=== PATIENT | male | born 1995 | race Caucasian/White ===

== ENCOUNTER 2025-05-28 00:57 | Emergency (ER) | payer MEDICAID ==
[~2025-05-28] VITALS: Ht 182.9 cm; Wt 80.0 kg
[2025-05-28 00:59] VITALS: RESP 18
--- NOTE | 2025-05-28 01:16 | ELECTROCARDIOGRAPH REPORT ---
[facility] Test Date: 2025-05-28 Test Time: 01:12:47 Pat Name: PALAK BENITEZ Department: EMERGENCY ROOM [id number] Room: Gender: M [employer]: : 1995 Requested By: TANNER LEÓN Order Number: [id number] Reading MD: Measurements Intervals [place] Rate: 58 P: 150 CO: 195 QRS: 196 QRSD: 106 T: 153 QT: 389 QTc: 383 Interpretive Statements Age not entered, assumed to be 48 years old for purpose of ECG interpretation Right and left arm electrode reversal, interpretation assumes no reversal Sinus or ectopic atrial bradycardia Right axis deviation Abnormal T, consider ischemia, lateral leads ST elev, probable normal early repol pattern Please click the below link to view image of tracing.
[2025-05-28 01:45] LABS: MEAN PLATELET VOLUME 8.0 FL (7.4-10.4); RED CELL DISTRIBUTION WIDTH 13.4 % (11.5-14.5)
[2025-05-28 02:00] VITALS: BP 112/70; PULSE 63
[2025-05-28 02:00] LABS: CREATININE 0.84 MG/DL (0.60-1.10); TOTAL CARBON DIOXIDE 32.3 MMOL/L (24-32); eCRCL 140 ML/MIN; eGFR > 90 ML/MIN
--- NOTE | 2025-05-28 02:13 | Physician Documentation ---
History of Present Illness Chief Complaint: Syncope Stated Complaint: FAINTING Time Seen by MD: 01:09 Mode of Arrival: EMS HPI Reports abdominal pain and vomiting after eating hot sauce. Denies fevers, diarrhea, urinary symptoms. Also reports possible loss of consciousness. Difficult historian. Medication Reconciliation Allergies: Coded Allergies: No Known Allergies (Unverified , 05/28/25) Review of Systems All Other Systems at this time: Reviewed and Negative Physical Exam Vital Signs: RN Vital Signs have been reviewed: Yes, Temperature: 98.1, Heart Rate: 63, Respiratory Rate: 18, BP: 112/70, Pulse Oximetry: 98, Weight: 80.000 Physical Exam HEENT: PERRL, moist oral mucosa, EOMI Pulmonary: No respiratory distress Cardiac: RRR, no murmur, rub or gallop GI: nondistended, soft, nontender, no guarding, no rebound MSK: no deformity Skin: w/d/i, no rash Neuro: alert, nonfocal Psych: normal affect Progress Results/Orders Results/Orders Orders - TANNER LEÓN MD Stat Ekg (05/28/25 01:09) Completed Orders - TANNER LEÓN MD Electrocardiogram (05/28/25 01:09) Cbc/Diff (05/28/25 01:15) CMP (05/28/25 01:15) Lipase (05/28/25 01:15) Vital Signs 05/28/25 05/28/25 05/28/25 05/28/25 00:59 01:15 01:30 01:45 Temp 98.1 Pulse 56 62 60 62 Resp 18 B/P (MAP) 120/93 117/83 (94) 113/74 (87) 110/75 (87) Pulse Ox 99 99 98 98 05/28/25 02:00 Pulse 63 B/P (MAP) 112/70 (84) Pulse Ox 98 Laboratory Tests Test 05/28/25 01:34 White Blood Count 8.0 Red Blood Count 4.84 Hemoglobin 14.1 Hematocrit 41.1 L Mean Corpuscular Volume 85.0 Mean Corpuscular Hemoglobin 29.3 Mean Corpuscular Hemoglobin Concent 34.4 Red Cell Distribution Width 13.4 Platelet Count 213 Mean Platelet Volume 8.0 Neutrophils (%) (Auto) 53.3 Lymphocytes (%) (Auto) 36.3 Monocytes (%) (Auto) 7.5 Eosinophils (%) (Auto) 2.1 Basophils (%) (Auto) 0.8 Neutrophils # (Auto) 4.3 Lymphocytes # (Auto) 2.9 Monocytes # (Auto) 0.6 Eosinophils # (Auto) 0.2 Basophils # (Auto) 0.1 CBC Comment Sodium Level 140 Potassium Level 3.4 L Chloride Level 105 Carbon Dioxide Level 32.3 H Anion Gap 3 L Blood Urea Nitrogen 10 Creatinine 0.84 Estimated GFR/1.73 m2 > 90 BUN/Creatinine Ratio 11.9 Glucose Level 88 Calcium Level 8.7 Total Bilirubin 0.6 Aspartate Amino Transf (AST/SGOT) 22 Alanine Aminotransferase (ALT/SGPT) 22 Alkaline Phosphatase 128 H Total Protein 7.1 Albumin 3.6 Globulin 3.5 Albumin/Globulin Ratio 1.0 L Lipase 37 Chemistry Comments Medical Decision Making Additional information obtaine: N/A Findings 29 year old male with abdominal pain. Exam, vitals, workup entirely unremarkable. Observed on telemonitor, no further loc or syncope. Discharged with return precautions. Differential Dx:Considerations: AAA, Aortic dissection, Appendicitis, Cholelithasis, Esophagitis, GI hemorrhage, Hernia, Inflammatory BD, Porphyria, Testicular torsion, Trauma, intraabdominal, Urinary tract infection, Urolithiasis, Other Departure Disposition: 01 HOME / SELF CARE / HOMELESS Impression: Primary Impression: Syncope Additional Impression: Abdominal pain Discharge Instructions: Syncope, Adult Referrals: NO PRIMARY CARE PROVIDER (PCP) Education Educated: Patient Educated regarding: diagnosis, treatment, prognosis, need for follow up Signature Scribe Signature: . Attestation: . TANNER LEÓN MD May 28, 2025 02:13
[2025-05-28 02:22] VITALS: TEMP 98.1; O2SAT 99
== END 2025-05-28 02:37 | disposition home or self-care (01) ==
LOC: ER 00:58
DX: R55 Syncope and collapse (principal); R10.9 Unspecified abdominal pain; R11.10 Vomiting, unspecified
CPT/HCPCS: 36415; 80053; 83690; 85025; 93005; 99285